=== PATIENT | male | born 1985 | race Caucasian/White ===

== ENCOUNTER 2018-03-23 18:27 | Emergency (ER) | payer BC, OTHER ==
[2018-03-23] MEDS ORDERED: Acetaminophen/HYDROcodone 325-10 MG Tab PO ONE (18:36)
[2018-03-23] MEDS ORDERED: Morphine 4 MG/ML Syringe IM ONE (18:40)
[2018-03-23] MEDS ORDERED: Diphtheria,Pertussis(Acell),Tetanus Vaccine 0.5 ML Syringe IM ONE (18:40)
--- NOTE | 2018-03-23 18:53 | EDM.PDOC ---
ED HPI GENERAL MEDICAL PROBLEM - General Chief Complaint: Upper Extremity Injury/Pain Stated Complaint: smashed right hand Time Seen by Provider: 03/23/18 18:33 Source of Information: Reports: Patient History Limitations: Reports: No Limitations - History of Present Illness INITIAL COMMENTS - FREE TEXT/NARRATIVE: Patient comes in this afternoon with complaints of pain to his right fingers after smashing them in a hydraulic wood splitter he complains of pain mostly to the right ring and right pinky fingers but is unsure if he caught the middle and index fingers as well. His last tetanus shot was approximately 10 years ago. He has no further complaints he is somewhat dusky in appearance as well as sweaty and pale. Onset: Today, Sudden Onset Date: 03/23/18 Onset Time: 18:15 Location: Reports: Upper Extremity, Right Quality: Reports: Burning, Pressure Severity: Moderate Improves with: Reports: None Worsens with: Reports: None Associated Symptoms: Reports: No Other Symptoms Fingers/right hand Pain Score (Numeric/FACES): 4 - Related Data Allergies Allergy/AdvReac Type Severity Reaction Status Date / Time No Known Allergies Allergy Verified 03/23/18 21:38 Home Meds: Home Meds . [No Known Home Meds] 03/23/18 [History] Review of Systems - Review of Systems Review Of Systems: See Below Constitutional: Reports: No Symptoms Eyes: Reports: No Symptoms Ears: Reports: No Symptoms Nose: Reports: No Symptoms Mouth/Throat: Reports: No Symptoms Respiratory: Reports: No Symptoms Cardiovascular: Reports: No Symptoms GI/Abdominal: Reports: No Symptoms Genitourinary: Reports: No Symptoms Musculoskeletal: Reports: Other (right index and pinky finger pain) Skin: Reports: Bruising, Erythema, Wound Neurological: Reports: No Symptoms Psychiatric: Reports: No Symptoms ED EXAM, GENERAL - Physical Exam Exam: See Below Exam Limited By: No Limitations General Appearance: Alert, WD/WN, Mild Distress Head: Atraumatic, Normocephalic Respiratory/Chest: No Respiratory Distress, Lungs Clear, Normal Breath Sounds, No Accessory Muscle Use, Chest Non-Tender Cardiovascular: Normal Peripheral Pulses, Regular Rate, Rhythm, No Edema, No Gallop, No JVD, No Murmur, No Rub Skin Exam: Ecchymosis, Other (right ring finger has injury to the nail bed. Nail is intact and I will leave it to fall off on its own. Some ecchymosis to the pinky finger) Course - Vital Signs Last Recorded V/S: Last Vital Signs Temp 35.8 C 03/23/18 18:30 Pulse 84 03/23/18 18:30 Resp 16 03/23/18 18:30 BP 127/80 03/23/18 18:30 Pulse Ox 95 03/23/18 18:30 - Orders/Labs/Meds Meds: Medications Discontinued Medications Generic Name Dose Route Start Last Admin Trade Name Perez PRN Reason Stop Dose Admin Hydrocodone Bitart/Acetaminophen 1 tab 03/23/18 18:36 03/23/18 18:42 [place] 325-10 Mg PO 03/23/18 18:37 1 tab ONETIME ONE Administration Hydrocodone Bitart/Acetaminophen 1 packet 03/23/18 19:53 03/23/18 20:01 Take Home: Acetaminophen/Hydrocodone 325-10mg PO 03/23/18 19:54 1 packet ONETIME ONE Administration Diphtheria/Tetanus/Acell Pertussis 0.5 ml 03/23/18 18:40 03/23/18 19:19 Adacel IM 03/23/18 18:41 0.5 ml .ONCE ONE Administration Morphine Sulfate 4 mg 03/23/18 18:40 03/23/18 19:01 Morphine IM 03/23/18 18:41 4 mg ONETIME ONE Administration - Radiology Interpretation Free Text/Narrative:: x-ray shows distal tuft fractures of the 4th and 5th digits of the right hand. Closed fractures Departure - Departure Time of Disposition: 20:05 Disposition: Home, Self-Care 01 Condition: Good Clinical Impression: Closed fracture of tuft of distal phalanx of finger - Discharge Information Instructions: Crush Injury of the Hand, [id number] Referrals: PCP,None [Primary Care Provider] - Forms: ED Department Discharge Additional Instructions: Keep wound clean and dry. Leave dressing on for 48 hours before removing. May shower and wash the wound with soap and water. Follow up with primary provider in 7-10 days or sooner as needed Take the hydrocodone as needed for pain. You can also supplement this with ibuprofen products. You can also take tylenol, but do not exceed 4,000 mg of tylenol per day as this can injure your liver Please call with any questions or concerns. - Problem List & Annotations (1) Closed fracture of tuft of distal phalanx of finger SNOMED Code(s): 827895671 Code(s): S62.639A - DISP FX OF DISTAL PHALANX OF UNSP FINGER, INIT FOR CLOS FX Status: Acute Priority: Low - Problem List Review Problem List Initiated/Reviewed/Updated: Yes - Assessment/Plan Assessment:: closed distal phalanx fracture of 4th and 5th digits Plan: Keep wound clean and dry. Leave dressing on for 48 hours before removing. May shower and wash the wound with soap and water. Follow up with primary provider in 7-10 days or sooner as needed Take the hydrocodone as needed for pain. You can also supplement this with ibuprofen products. You can also take tylenol, but do not exceed 4,000 mg of tylenol per day as this can injure your liver Please call with any questions or concerns.
[2018-03-23] MEDS ORDERED: Take Home: Acetaminophen/HYDROcodone 325-10 MG, 5 Tab Pack PO ONE (19:53)
== END 2018-03-23 20:05 | disposition home or self-care (01) ==
LOC: VM.ED 18:27
DX: S62.634A Displaced fracture of distal phalanx of right ring finger, initial encounter for closed fracture (principal); S62.636A Displaced fracture of distal phalanx of right little finger, initial encounter for closed fracture; Z23 Encounter for immunization; W23.1XXA Caught, crushed, jammed, or pinched between stationary objects, initial encounter
CPT/HCPCS: 73140-RT; 90471; 90715; 96372; 96374; 99283; A9270-GY; J2270